=== PATIENT | female | born 1985 | race Caucasian/White ===

== ENCOUNTER 2018-03-05 13:23 | Emergency (ER) | payer BC ==
[~2018-03-05] VITALS: Ht 182.9 cm; Wt 93.4 kg
[2018-03-05] MEDS ORDERED: SERTRALINE HCL50 MG PO (13:52)
[2018-03-05] MEDS ORDERED: METFORMIN HCL500 MG PO (13:52)
[2018-03-05] MEDS ORDERED: NOVOLOG FL100 UNIT/1 SUB-Q (13:53)
[2018-03-05] MEDS ORDERED: LANTUS SOL100 UNIT/1 SUB-Q (13:53)
[2018-03-05] MEDS ORDERED: PROTONIX40 MG PO (17:09)
== END 2018-03-05 17:35 | disposition home or self-care (01) ==
LOC: ED 13:23
DX: R10.9 Unspecified abdominal pain (principal); E11.9 Type 2 diabetes mellitus without complications; Z88.8 Allergy status to other drugs, medicaments and biological substances; Z79.4 Long term (current) use of insulin
CPT/HCPCS: 76705; 80053; 81001; 83690; 84703; 85025; 96360; 96361; 99284; J7040